=== PATIENT | female | born 1950 | race Caucasian/White ===

== ENCOUNTER → 2016-07-17 | Outpatient (CLI) | payer OTHER, MEDICAID ==
--- NOTE | 2016-07-17 14:36 | US ---
HISTORY: Abnormal screening mammogram Study: Left breast ultrasound Comparison: Mammogram dated June 14, 2016 Technique: Multiple price scale images of the left breast were obtained in the 1 o'clock position in the region of mammographic abnormality. Findings: A focal well-defined anechoic cystic lesion in the 1 o'clock position measuring 4 mm x 3 mm is obser jigna. IMPRESSION: Benign intraparenchymal cysts of left breast corresponding mammographic abnormality. ACR category 2 benign findings Return to screening schedule Reported By:
== END ==
LOC: RAD 13:07
PROVIDERS: ATTEND Nurse Practitioner Family
DX: R92.0 Mammographic microcalcification found on diagnostic imaging of breast (principal)
CPT/HCPCS: 76642

== ENCOUNTER → 2016-09-12 | Outpatient (CLI) | payer OTHER, MEDICAID ==
--- NOTE | 2016-09-12 12:18 | RAD ---
HISTORY: Right knee pain. Complete three view series of the right knee joint. Comparisons: none. Findings: Examination of the right knee demonstrate no evidence for acute fracture, subluxation, or dislocatio n. The medial and lateral tibiofemoral compartments demonstrate mild joint space narrowing and simon inal osteophyte formation. The findings are compatible with mild degenerative joint disease. The l ateral radiograph fails to demonstrate significant joint effusion. Patellofemoral compartment shows mild DJD and mild chondromalacia patella. IMPRESSION: Mild tricompartmental knee joint osteoarthritis, worse medially. Reported By:
--- NOTE | 2016-09-12 12:19 | RAD ---
HISTORY: Left knee pain. Complete three view series of the left knee joint. Comparisons: none. Findings: Examination of the left knee demonstrate no evidence for acute fracture, subluxation, or dislocation . The medial and lateral tibiofemoral compartments demonstrate mild joint space narrowing and robinson nal osteophyte formation. The findings are compatible with mild degenerative joint disease. The la teral radiograph fails to demonstrate significant joint effusion. Patellofemoral compartment shows mild DJD and mild chondromalacia patella. IMPRESSION: Mild to moderate tricompartmental knee joint osteoarthritis, worse medially. Reported By:
--- NOTE | 2016-09-12 13:11 | RAD ---
HISTORY: Abdominal discomfort Study: Acute abdominal series Comparison: February 13, 2016 Findings: The trachea is midline. The cardiac silhouette is unremarkable. The lungs are clear without focal infiltrate or effusion. The bony thorax is unremarkable. Flat plate and upright evaluation of the abdomen demonstrates a normal bowel gas pattern. No pneumop eritoneum is identified.. No pathological soft tissue mass or calcification can be observed. The b jt structures are grossly intact. IMPRESSION: 1. No acute cardiopulmonary disease. 2. No evidence for acute abdominal pathology identified. Reported By:
== END ==
LOC: RAD 11:05
PROVIDERS: ATTEND Nurse Practitioner Family
DX: M25.561 Pain in right knee (principal); M25.562 Pain in left knee; R10.84 Generalized abdominal pain; M17.12 Unilateral primary osteoarthritis, left knee
CPT/HCPCS: 73564; 74022

== ENCOUNTER → 2016-12-13 | Outpatient (CLI) | payer OTHER, MEDICAID ==
[2016-12-13 09:39] LABS: BASOPHILS # (AUTO) 0.1 X10^3/uL (0.0-0.1); BASOPHILS % (AUTO) 0.9 % (0.2-1.0); EOSINOPHILS # (AUTO) 0.1 x10^3/uL (0.0-0.2); EOSINOPHILS % (AUTO) 0.7 % (0.9-2.9); HEMOGLOBIN 13.4 g/dL (12.0-16.0); LYMPHOCYTES % (AUTO) 26.6 % (21.0-51.0); MEAN CORPUSCULAR HEMOGLOBIN 28.7 pg (27.0-34.0); MEAN CORPUSCULAR HGB CONC 33.6 g/dL (33.0-35.0); MEAN CORPUSCULAR VOLUME 85.5 fL (80.0-100.0); MEAN PLATELET VOLUME 9.7 fL (7.4-11.0); MONOCYTES # (AUTO) 0.5 x10^3/uL (0.3-0.8); MONOCYTES % (AUTO) 6.4 % (0.0-13.0); NEUTROPHILS # (AUTO) 4.9 x10^3/uL (2.2-4.8); NEUTROPHILS % (AUTO) 65.4 % (42.0-75.0); PLATELET COUNT 220 X10^3/uL (150.0-450.0); RED BLOOD COUNT 4.68 X10^6/uL (3.5-5.4); RED CELL DISTRIBUTION WIDTH 14.3 % (11.6-16.5); WHITE BLOOD COUNT 7.5 X10^3/uL (3.6-10.0)
[2016-12-13 09:46] LABS: ALANINE AMINOTRANSFERASE 28 Units/L (12-78); ALBUMIN 4.1 g/dL (3.4-5.0); ALKALINE PHOSPHATASE 97 Units/L (46-116); ASPARTATE AMINO TRANSFERASE 14 Units/L (15-37); BLOOD UREA NITROGEN 19 mg/dL (7-18); CALCIUM 9.6 mg/dL (8.5-10.1); CARBON DIOXIDE 31.1 mmol/L (21-32); CHLORIDE 105 mmol/L (98-107); CHOL/HDL RATIO 2.3 (0.0-5.0); CHOLESTEROL 154 mg/dL (0-200); COR NA(FOR HYPERGLY) 142 mmol/L (136-145); CREATININE 0.78 mg/dL (0.55-1.02); HDL CHOLESTEROL 66 mg/dL (40-60); SODIUM 142 mmol/L (136-145); TOTAL PROTEIN 7.8 g/dL (6.4-8.2); TRIGLYCERIDES 112 mg/dL (0-150); eGFR BLACK RACES > 60 (>60); eGFR NON BLACK RACES > 60 (>60)
[2016-12-13 10:16] LABS: ERYTHROCYTE SEDIMENTATION RATE 44 MM/HOUR (0-20)
== END ==
LOC: LAB 09:06
PROVIDERS: ATTEND Nurse Practitioner Family
DX: M17.0 Bilateral primary osteoarthritis of knee (principal); E78.4 Other hyperlipidemia; I10 Essential (primary) hypertension; R79.82 Elevated C-reactive protein (CRP); R70.0 Elevated erythrocyte sedimentation rate
CPT/HCPCS: 36415; 80053; 80061; 82306; 85025; 85652; 86140

== ENCOUNTER → 2017-05-17 | Outpatient (CLI) | payer OTHER, MEDICAID ==
[2017-05-17 12:12] LABS: BASOPHILS # (AUTO) 0.1 X10^3/uL (0.0-0.1); BASOPHILS % (AUTO) 1.3 % (0.2-1.0); EOSINOPHILS % (AUTO) 0.4 % (0.9-2.9); HEMATOCRIT 42.5 % (36.0-47.0); HEMOGLOBIN 14.1 g/dL (12.0-16.0); LYMPHOCYTES # (AUTO) 2.1 X10^3/uL (1.3-2.9); LYMPHOCYTES % (AUTO) 24.2 % (21.0-51.0); MEAN CORPUSCULAR HEMOGLOBIN 28.7 pg (27.0-34.0); MEAN CORPUSCULAR HGB CONC 33.2 g/dL (33.0-35.0); MEAN CORPUSCULAR VOLUME 86.3 fL (80.0-100.0); MEAN PLATELET VOLUME 9.7 fL (7.4-11.0); MONOCYTES # (AUTO) 0.6 x10^3/uL (0.3-0.8); MONOCYTES % (AUTO) 6.4 % (0.0-13.0); NEUTROPHILS # (AUTO) 5.9 x10^3/uL (2.2-4.8); NEUTROPHILS % (AUTO) 67.7 % (42.0-75.0); PLATELET COUNT 223 X10^3/uL (150.0-450.0); RED BLOOD COUNT 4.93 X10^6/uL (3.5-5.4); RED CELL DISTRIBUTION WIDTH 13.9 % (11.6-16.5); WHITE BLOOD COUNT 8.7 X10^3/uL (3.6-10.0)
[2017-05-17 12:22] LABS: ALANINE AMINOTRANSFERASE 17 Units/L (12-78); ALBUMIN 4.2 g/dL (3.4-5.0); ALKALINE PHOSPHATASE 122 Units/L (46-116); ASPARTATE AMINO TRANSFERASE 10 Units/L (15-37); BLOOD UREA NITROGEN 21 mg/dL (7-18); CALCIUM 9.4 mg/dL (8.5-10.1); CARBON DIOXIDE 28.4 mmol/L (21-32); CHLORIDE 103 mmol/L (98-107); CHOL/HDL RATIO 2.6 (0.0-5.0); CHOLESTEROL 177 mg/dL (0-200); COR NA(FOR HYPERGLY) 140 mmol/L (136-145); CREATININE 0.97 mg/dL (0.55-1.02); HDL CHOLESTEROL 67 mg/dL (40-60); SODIUM 140 mmol/L (136-145); TOTAL PROTEIN 8.1 g/dL (6.4-8.2); TRIGLYCERIDES 84 mg/dL (0-150); eGFR BLACK RACES > 60 (>60); eGFR NON BLACK RACES > 60 (>60)
== END ==
LOC: LAB 11:46
PROVIDERS: ATTEND Nurse Practitioner Family
DX: I10 Essential (primary) hypertension (principal); E56.8 Deficiency of other vitamins; E78.4 Other hyperlipidemia
CPT/HCPCS: 36415; 80053; 80061; 82306; 85025